=== PATIENT | male | born 1985 | race Caucasian/White ===

== ENCOUNTER 2018-03-09 10:17 | Emergency (ER) | payer OTHER ==
[~2018-03-09] VITALS: Ht 182.9 cm; Wt 99.8 kg
[~2018-03-09 10:17] MED LIST: ABILIFY MAINTE400 M1 IM; ALLER-EASE180 MG PO; ASPIR 8181 MG PO; COLACE100 MG PO; DEPAKOTE ER500 MG PO; ESKALITH300 MG PO; FISH OIL 1,001000 M2 PO; FLONASE 0.05%50 MCG NASAL; HYDROCODONE-AP1 EAC6 PO; IBUPROFEN 600600 M1 PO; KEFLEX500 MG PO; LEVOTHYROXINE 0.1 MG PO; LITHIUM CARBON300 M3 PO; METFORMIN HCL500 MG PO; NYAMYC15 GM TOP; PEPCID20 MG PO; QUETIAPINE FUM300 MG PO; REMERON15 MG PO; TRICOR145 MG PO; VISTARIL 25 MG25 M1 PO; ZYRTEC10 MG PO
[2018-03-09 11:00] LABS: URINE BILIRUBIN NEGATIVE (Negative); URINE BLOOD 2+ (Negative); URINE CLARITY CLEAR; URINE COLOR YELLOW; URINE GLUCOSE-RANDOM* NEGATIVE (Negative); URINE KETONES NEGATIVE (Negative); URINE LEUKOCYTES-REFLEX NEGATIVE (Negative); URINE NITRITE-REFLEX NEGATIVE (Negative); URINE PROTEIN (DIPSTICK) NEGATIVE (Negative); URINE SPECIFIC GRAVITY 1.025 (1.005-1.035); URINE UROBILINOGEN 0.2 E.U./dl (0.2-1.0)
[2018-03-09 11:04] LABS: CALCIUM 9.6 mg/dL (8.5-10.1); POTASSIUM 3.8 mmol/L (3.5-5.1)
[2018-03-09 11:14] LABS: MUCUS >6 Heavy strn/LPF (None Seen); SQUAMOUS 0-3 Few /LPF (0-3); URINE RBC 3-10 Few /HPF (0-2); URINE WBC-REFLEX 0-5 Rare /HPF (0-5)
[2018-03-09 11:23] VITALS: BP 143/87
== END 2018-03-09 11:25 | disposition home or self-care (01) ==
LOC: ER 10:17
PROVIDERS: Physician Assistant
DX: E11.65 Type 2 diabetes mellitus with hyperglycemia (principal); I10 Essential (primary) hypertension; F31.9 Bipolar disorder, unspecified; F90.9 Attention-deficit hyperactivity disorder, unspecified type; F25.9 Schizoaffective disorder, unspecified

== ENCOUNTER 2018-06-03 23:15 | Emergency (ER) | payer OTHER ==
[~2018-06-03] VITALS: Ht 182.9 cm; Wt 108.9 kg
[2018-06-04 00:07] LABS: HEMOGLOBIN 16.2 gm/dL (14.0-18.0); MCH 31.8 pg (26.0-34.0); MCHC 36.7 g/dL (28.0-37.0); MCV 86.5 fL (80.0-100.0); RBC 5.08 mil/uL (4.50-6.00); RDW 13.1 % (10.5-14.5); WBC 6.7 thou/uL (4.0-11.0)
[2018-06-04 00:07] LABS: BE(vivo) 0.3 mmol/L (-2 to +3); HCO3 25.6 mmol/L (22.0-26.0); PCO2 VENOUS 43.6 mmHg (41.0-51.0); PO2 VENOUS 36.5 mmHg (35.0-45.0)
[2018-06-04 00:19] LABS: CALCIUM 8.6 mg/dL (8.5-10.1)
[2018-06-04 00:22] LABS: TOTAL BILIRUBIN 0.7 mg/dL (<0.1-1.0)
[2018-06-04] MEDS ORDERED: GLUCOPHAGE500 MG PO (00:28)
[2018-06-04 00:29] LABS: TOTAL PROTEIN 7.5 g/dL (6.4-8.2)
[2018-06-04] MEDS ORDERED: MELATONIN5 M1 PO (00:37)
[2018-06-04] MEDS ORDERED: GABAPENTIN 100100 MG PO (00:37)
[2018-06-04] MEDS ORDERED: EPIPEN0.3 MG/0.1 IM (00:38)
[2018-06-04 01:21] LABS: URINE BILIRUBIN NEGATIVE (Negative); URINE BLOOD NEGATIVE (Negative); URINE CLARITY CLEAR; URINE COLOR YELLOW; URINE GLUCOSE-RANDOM* 3+ (Negative); URINE KETONES NEGATIVE (Negative); URINE LEUKOCYTES-REFLEX NEGATIVE (Negative); URINE NITRITE-REFLEX NEGATIVE (Negative); URINE PROTEIN (DIPSTICK) NEGATIVE (Negative); URINE UROBILINOGEN 0.2 E.U./dl (0.2-1.0)
[2018-06-04 01:55] VITALS: BP 147/96
== END 2018-06-04 02:14 | disposition home or self-care (01) ==
LOC: ER 23:15
PROVIDERS: Emergency Medicine
DX: R73.9 Hyperglycemia, unspecified (principal); I10 Essential (primary) hypertension; F31.9 Bipolar disorder, unspecified; F25.9 Schizoaffective disorder, unspecified; F90.9 Attention-deficit hyperactivity disorder, unspecified type; Z91.030 Bee allergy status; Z88.3 Allergy status to other anti-infective agents